=== PATIENT | male | born 1980 ===

== ENCOUNTER → 2016-09-03 | Outpatient (CLI) | payer OTHER | END | disposition home or self-care (01) | LOC: C.PATHSPEC 17:06 | PROVIDERS: ATTEND Urology | DX: Z30.2 Encounter for sterilization (principal) ==

== ENCOUNTER → 2016-11-27 | Outpatient (CLI) | payer OTHER ==
--- NOTE | 2016-11-27 13:57 | DIAGNOSTIC IMAGING REPORT ---
SCROTAL ULTRASOUND CLINICAL HISTORY: Testicular pain. COMPARISON STUDY: None. TECHNIQUE: Grayscale and color and duplex Doppler sonography of the scrotum was performed. FINDINGS: The right testis measures 5.2 x 2.6 x 2.9 cm and left measures 4.9 x 2.2 x 3.2 cm. There is no testicular mass. Color flow within each testis is symmetric. Multiple microliths are noted. There is no evidence of epididymitis. There is a 6 mm left epididymal cyst. IMPRESSION: 1. No evidence of testicular torsion. No testicular mass. 2. No evidence of epididymitis. 3. Testicular microlithiasis. Electronically signed by: Dillan Hatfield M.D. 11/27/2016 1:56 PM Dictated Date/Time: 11/27/2016 1:54 PM
== END | disposition home or self-care (01) ==
LOC: C.ULTR 13:11
PROVIDERS: ATTEND Nurse Practitioner Adult Health
DX: N50.819 Testicular pain, unspecified (principal)